=== PATIENT | female | born 1975 | race American Indian/Alaskan Native ===

== ENCOUNTER 2017-08-19 19:45 | Emergency (ER) | payer SELFPAY ==
[2017-08-20] MEDS ORDERED: MOTRIN PO ONE (01:07)
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
[2017-08-20 02:08] VITALS: BP 142/81
== END 2017-08-20 01:25 | disposition home or self-care (01) ==
LOC: ED 19:45
DX: S13.4XXA Sprain of ligaments of cervical spine, initial encounter (principal); S39.012A Strain of muscle, fascia and tendon of lower back, initial encounter; E11.9 Type 2 diabetes mellitus without complications; Z79.82 Long term (current) use of aspirin; V89.2XXA Person injured in unspecified motor-vehicle accident, traffic, initial encounter; Y93.89 Activity, other specified; Y92.89 Other specified places as the place of occurrence of the external cause; Y99.8 Other external cause status
CPT/HCPCS: 99282

== ENCOUNTER 2020-09-06 11:24 | Emergency (ER) | payer SELFPAY ==
[2020-09-06 11:36] VITALS: BP 149/88
--- NOTE | 2020-09-06 11:42 | Emergency Department Report ---
ED General Adult HPI - General Chief complaint: Extremity Injury, Upper Stated complaint: FINGER INJURY Time Seen by Provider: 09/06/20 11:36 Source: patient Mode of arrival: Ambulatory Limitations: No Limitations - History of Present Illness Initial comments: 44-year-old -Citizen Of [place] female patient presents with complaints of left little finger pain after a fall injury yesterday. She denies any numbness or tingling to the finger and states she does have some difficulty moving the finger due to pain. Patient rates her pain as a 9/10 in severity. Severity scale (0 -10): 8 - Related Data Home Medications Medication Instructions Recorded Confirmed Last Taken Aspirin EC [Halfprin EC] 81 mg PO QDAY 06/05/13 06/05/13 06/04/13 metFORMIN [Glucophage] 1,000 mg PO BID 06/05/13 06/05/13 06/05/13 Previous Rx's Medication Instructions Recorded Last Taken Type Cyclobenzaprine [Flexeril] 10 mg PO QHS PRN #5 tablet 08/20/17 Unknown Rx Ibuprofen [Motrin] 600 mg PO Q8H PRN #30 tablet 08/20/17 Unknown Rx Acetaminophen/Codeine [Tylenol 1 tab PO Q8H PRN #12 tab 09/06/20 Unknown Rx /Codeine # 3 tab] Naproxen [EC-Naprosyn] 500 mg PO BID PRN #14 tablet. 09/06/20 Unknown Rx Allergies Allergy/AdvReac Type Severity Reaction Status Date / Time No Known Allergies Allergy Verified 08/19/17 19:53 ED Review of Systems ROS: Stated complaint: FINGER INJURY Other details as noted in HPI Constitutional: denies: chills, fever Cardiovascular: denies: chest pain Gastrointestinal: denies: abdominal pain Musculoskeletal: joint swelling, arthralgia. denies: back pain Skin: denies: change in color ED Past Medical Hx - Past Medical History Previous Medical History?: Yes Hx Diabetes: Yes Hx of Cancer: Yes (ovarian) - Surgical History Past Surgical History?: Yes Additional Surgical History: ovaries removed - Social History Smoking Status: Never Smoker Substance Use Type: None - Medications Home Medications: Home Medications Medication Instructions Recorded Confirmed Last Taken Type Aspirin EC [Halfprin EC] 81 mg PO QDAY 06/05/13 06/05/13 06/04/13 History metFORMIN [Glucophage] 1,000 mg PO BID 06/05/13 06/05/13 06/05/13 History Cyclobenzaprine [Flexeril] 10 mg PO QHS PRN #5 tablet 08/20/17 Unknown Rx Ibuprofen [Motrin] 600 mg PO Q8H PRN #30 tablet 08/20/17 Unknown Rx Acetaminophen/Codeine [Tylenol 1 tab PO Q8H PRN #12 tab 09/06/20 Unknown Rx /Codeine # 3 tab] Naproxen [EC-Naprosyn] 500 mg PO BID PRN #14 tablet. 09/06/20 Unknown Rx ED Physical Exam - General Limitations: No Limitations General appearance: alert, in no apparent distress - Head Head exam: Present: atraumatic, normocephalic - Eye Eye exam: Present: normal appearance - Respiratory Respiratory exam: Absent: respiratory distress - Cardiovascular Cardiovascular Exam: Present: regular rate - Extremities Exam Extremities exam: Present: other (Tenderness to palpation noted of left little finger with mild swelling; normal perfusion and sensation is noted; decreased range of motion) - Neurological Exam Neurological exam: Present: alert, oriented X3 - Psychiatric Psychiatric exam: Present: normal affect, normal mood - Skin Skin exam: Present: warm, dry, intact, normal color. Absent: rash ED Course Vital Signs 09/06/20 11:33 Temperature 98.0 F Pulse Rate 95 H Respiratory 18 Rate Blood Pressure 149/88 [Right] O2 Sat by Pulse 100 Oximetry ED Medical Decision Making - Radiology Data Radiology results: report reviewed LEFT FINGER(S) 3 VIEW(S) INDICATION / CLINICAL INFORMATION: little finger pain after injury COMPARISON: None available. FINDINGS: BONES / JOINT(S): Minimally displaced fracture noted involving the base of the small finger middle phalanx at the PIP joint. No dislocation. SOFT TISSUES: Soft tissues along surrounds fracture site. ADDITIONAL FINDINGS: None. - Medical Decision Making 44-year-old -Citizen Of [place] female patient presents with complaints of left little finger pain after a fall injury yesterday. She denies any numbness or tingling to the finger and states she does have some difficulty moving the finger due to pain. Patient rates her pain as a 9/10 in severity. X-ray of the finger shows minimally displaced fracture noted involving the base of the small finger middle phalanx at the PIP joint. Patient placed in a metal finger splint. She is to follow-up with orthopedics in 2 to 3 days. Discussed signs and symptoms that should prompt immediate return to the emergency department in detail patient verbalized understanding. Patient is well- appearing and she is stable for discharge home. Critical care attestation.: If time is entered above; I have spent that time in minutes in the direct care of this critically ill patient, excluding procedure time. ED Disposition Clinical Impression: Finger fracture, left Qualifiers: Encounter type: initial encounter Finger: little finger Fracture type: closed Phalanx: proximal Fracture alignment: displaced Qualified Code(s): S62.617A - Displaced fracture of proximal phalanx of left little finger, initial encounter for closed fracture Disposition: DC- TO HOME OR SELFCARE Is pt being admited?: No Condition: Stable Instructions: Finger Fracture, Adult, Cast or Splint Care, Adult Prescriptions: Naproxen [EC-Naprosyn] 500 mg PO BID PRN #14 tablet. PRN Reason: Pain, Moderate (4-6) Acetaminophen/Codeine [Tylenol /Codeine # 3 tab] 1 tab PO Q8H PRN #12 tab PRN Reason: Pain , Severe (7-10) Referrals: [facility] [Provider Group] - 09/09/20
--- NOTE | 2020-09-06 12:20 | XRay Report ---
LEFT FINGER(S) 3 VIEW(S) INDICATION / CLINICAL INFORMATION: little finger pain after injury COMPARISON: None available. FINDINGS: BONES / JOINT(S): Minimally displaced fracture noted involving the base of the small finger middle ph alanx at the PIP joint. No dislocation. SOFT TISSUES: Soft tissues along surrounds fracture site. ADDITIONAL FINDINGS: None. Signer Name: Filipe Hassan MD Signed: 09/06/2020 12:16 PM Workstation Name: [id number]
== END 2020-09-06 13:17 | disposition home or self-care (01) ==
LOC: ED 11:24
DX: S62.617A Displaced fracture of proximal phalanx of left little finger, initial encounter for closed fracture (principal); E11.9 Type 2 diabetes mellitus without complications; Z79.82 Long term (current) use of aspirin; Z79.899 Other long term (current) drug therapy
CPT/HCPCS: 99283